=== PATIENT | female | born 1970 | race African-American/Black ===

== ENCOUNTER 2017-10-14 14:00 | Inpatient (IN) | payer OTHER ==
[2017-10-27 09:22] VITALS: BMI 40.2
[2017-10-28] MEDS ORDERED: ONDANSETRON 4 MG/2 ML VIAL IVPUSH PRN ×2 (11:55→15:43)
[2017-10-28] MEDS ORDERED: BUPIVACAINE HCL/PF 0.25% (2.5MG/ML) 10 ML VIAL ONE (11:57)
[2017-10-28] MEDS ORDERED: DEXAMETHASONE SOD PHOSPHATE/PF 10 MG/ML SDV ONE (11:57)
[2017-10-28] MEDS ORDERED: MIDAZOLAM HCL 2 MG/2 ML SINGLE DOSE VIAL ONE ×2 (11:58)
[2017-10-28] MEDS ORDERED: LACTATED RINGERS SOLUTION 1,000 ML IV SCH ×2 (12:00→15:45)
[2017-10-28] MEDS ORDERED: BUPIVACAINE HCL/PF 0.5% (5MG/ML) 10 ML VIAL ONE (13:10)
--- NOTE | 2017-10-28 13:31 | HP ---
History & Physical Update - History History: No Change - Physical Physical: No Change - Assessment Assessment: No Change - Plan Plan: No Change (Laparoscopic possible open vertical sleeve gastrectomy possible liver biopsy, EGD)
[2017-10-28] MEDS ORDERED: fentaNYL CITRATE 250 MCG/5 ML VIAL ONE (13:37)
[2017-10-28] MEDS ORDERED: ROCURONIUM BROMIDE 50 MG/5 ML VIAL ONE ×2 (13:37→14:59)
[2017-10-28] MEDS ORDERED: PROPOFOL 20 ML ONE (13:37)
[2017-10-28] MEDS ORDERED: LIDOCAINE HCL/PF 2% SDV 5ML VIAL ONE (13:39)
[2017-10-28] MEDS ORDERED: ceFAZolin SODIUM 1 GM VIAL ONE (13:56)
[2017-10-28] MEDS ORDERED: SODIUM CHLORIDE 0.9% P/F 10 ML VIAL IJ ONE (13:56)
[2017-10-28] MEDS ORDERED: ceFAZolin SODIUM 1 GM VIAL IVPB ONE (13:59)
[2017-10-28] MEDS ORDERED: DEXAMETHASONE SOD PHOSPHATE 4 MG/1 ML VIAL ONE (14:02)
[2017-10-28] MEDS ORDERED: NEOSTIGMINE METHYLSULFATE 0.5 MG/ML - 10 ML MDV ONE (15:10)
[2017-10-28] MEDS ORDERED: GLYCOPYRROLATE 0.2 MG/1 ML VIAL ONE ×2 (15:10→15:31)
[2017-10-28] MEDS ORDERED: BUPIVACAINE HCL/PF 0.5% (5MG/ML) 10 ML VIAL IJ ONE (15:13)
--- NOTE | 2017-10-28 15:24 | OP ---
Operative Note - Note: Operative Date: 10/28/17 Pre-Operative Diagnosis: Morbid obesity Operation: Laparoscopic vertical sleeve gastrectomy, wedge liver biopsy, EGD Post-Operative Diagnosis: Other (morbid obesity, hepatomegaly) Surgeon: Shaggy Sheridan Practice Business Asst: Fransico Garcia Anesthesia: General Specimens Removed: Greater curvature of stomach. Liver biopsy Estimated Blood Loss (mls): 30 Drains & Tubes with Location: 36 fr bougie Operative Report Dictated: Yes
[2017-10-28] MEDS: ONDANSETRON 4 MG/2 ML VIAL IVPUSH SCH ×3 (15:49→23:29)
[2017-10-28 16:32] LABS: HEMATOCRIT 42.5 % (32.4-45.2); HEMOGLOBIN 13.8 GM/dL (10.7-15.3); MCH 28.4 pg (25.7-33.7); MCHC 32.5 g/dl (32.0-36.0); MEAN CELL VOLUME 87.6 fl (80-96); MEAN PLT VOLUME 7.9 fl (7.5-11.1); PLATELET COUNT 281 K/MM3 (134-434); RBC 4.85 M/mm3 (3.60-5.2); RDW 13.3 % (11.6-15.6); WHITE BLOOD COUNT 17.7 K/mm3 (4.0-10.0)
[2017-10-28] MEDS ORDERED: ACETAMINOPHEN INJECTION 100 ML IVPB ONE (16:34)
[2017-10-28] MEDS: ACETAMINOPHEN 1000 MG/100 ML VIAL (NON FORMULARY) IVPB SCH ×2 (16:38→22:17)
[2017-10-28] MEDS: METOCLOPRAMIDE HCL INJECTION 10 MG/2 ML VIAL IVPUSH SCH ×2 (16:48→21:29)
[2017-10-28 17:03] LABS: ALBUMIN 3.4 g/dl (3.4-5.0); ALK PHOS 110 U/L (45-117); ANION GAP 10 (8-16); BILIRUBIN,TOTAL 0.7 mg/dL (0.2-1.0); BLOOD UREA NITROGEN 12 mg/dL (7-18); CALCIUM 8.4 mg/dL (8.5-10.1); CHLORIDE 104 mmol/L (98-107); CO2 23 mmol/L (21-32); CREATININE 0.9 mg/dL (0.55-1.02); POTASSIUM 4.5 mmol/L (3.5-5.1); SGOT/AST 220 U/L (15-37); SGPT/ALT 184 U/L (12-78); SODIUM 137 mmol/L (136-145); TOT PROT 6.5 g/dl (6.4-8.2)
[2017-10-28 17:14] LABS: GLUCOSE,RANDOM 312 mg/dL (74-106)
[2017-10-28] MEDS: SODIUM CHLORIDE 1,000 ML IV SCH (18:12)
[2017-10-28] MEDS: MORPHINE SULFATE 10 MG/1 ML *VIAL IVPUSH PRN ×2 (18:17→21:41)
[2017-10-28] MEDS ORDERED: METOPROLOL TARTRATE 5 MG/5 ML VIAL IVPUSH PRN (21:06)
[2017-10-28] MEDS: ENOXAPARIN NA (PORCINE) 40 MG/0.4 ML DISP.SYRIN SQ SCH (21:29)
[2017-10-28] MEDS: FAMOTIDINE 20 MG/50 ML IVPB 20 MG/50 ML MG IVPB SCH (21:34)
[2017-10-28] MEDS: INSULIN SLIDING SCALE (NOVOLOG) 1 VIAL SQ SCH (21:39)
[2017-10-29] MEDS: SODIUM CHLORIDE 1,000 ML IV SCH ×4 (02:25→16:42)
[2017-10-29] MEDS: MORPHINE SULFATE 10 MG/1 ML *VIAL IVPUSH PRN ×2 (02:34→16:42)
[2017-10-29] MEDS: ONDANSETRON 4 MG/2 ML VIAL IVPUSH SCH ×5 (02:37→20:51)
[2017-10-29] MEDS: METOCLOPRAMIDE HCL INJECTION 10 MG/2 ML VIAL IVPUSH SCH ×4 (03:17→20:51)
[2017-10-29] MEDS: ACETAMINOPHEN 1000 MG/100 ML VIAL (NON FORMULARY) IVPB SCH ×2 (04:20→09:41)
[2017-10-29] MEDS: PROMETHAZINE HCL 25 MG/1 ML VIAL IVPB PRN (05:52)
[2017-10-29] MEDS: INSULIN SLIDING SCALE (NOVOLOG) 1 VIAL SQ SCH ×3 (06:06→16:51)
[2017-10-29 06:56] LABS: HEMATOCRIT 39.7 % (32.4-45.2); HEMOGLOBIN 13.2 GM/dL (10.7-15.3); MCH 29.2 pg (25.7-33.7); MCHC 33.2 g/dl (32.0-36.0); MEAN CELL VOLUME 87.7 fl (80-96); MEAN PLT VOLUME 7.9 fl (7.5-11.1); PLATELET COUNT 278 K/MM3 (134-434); RBC 4.53 M/mm3 (3.60-5.2); RDW 13.2 % (11.6-15.6); WHITE BLOOD COUNT 11.9 K/mm3 (4.0-10.0)
[2017-10-29 07:04] LABS: ALBUMIN 3.2 g/dl (3.4-5.0); ANION GAP 12 (8-16); BLOOD UREA NITROGEN 11 mg/dL (7-18); CALCIUM 8.6 mg/dL (8.5-10.1); CHLORIDE 102 mmol/L (98-107); CO2 24 mmol/L (21-32); POTASSIUM 4.3 mmol/L (3.5-5.1); SODIUM 138 mmol/L (136-145)
[2017-10-29 07:10] LABS: ALK PHOS 107 U/L (45-117); BILIRUBIN,TOTAL 0.9 mg/dL (0.2-1.0); CREATININE 0.7 mg/dL (0.55-1.02); GLUCOSE,RANDOM 239 mg/dL (74-106); SGOT/AST 179 U/L (15-37); SGPT/ALT 200 U/L (12-78); TOT PROT 6.4 g/dl (6.4-8.2)
--- NOTE | 2017-10-29 08:58 | SPEC ---
DATE OF OPERATION: 10/28/2017 SURGEON: Shaggy Sheridan MD ASSOCIATE BROKER: Fransico Garcia MD PREOPERATIVE DIAGNOSES: 1. Morbid obesity. 2. Body mass index 40.3. 3. Hypertension. 4. Diabetes mellitus. 5. Hypercholesterolemia. POSTOPERATIVE DIAGNOSIS: 1. Morbid obesity. 2. Body mass index 40.3. 3. Hypertension. 4. Diabetes mellitus. 5. Hypercholesterolemia. 6. Hepatomegaly. PROCEDURES: 1. Laparoscopic vertical sleeve gastrectomy. 2. Laparoscopic wedge liver biopsy. 3. Esophagogastroduodenoscopy/upper endoscopy. SPECIMEN: 1. Greater curvature of stomach. 2. Liver biopsy. ESTIMATED BLOOD LOSS: 30 mL DRAINS: None. ANESTHESIA: GET. BOUGIE SIZE: 36-Yi. REASON FOR PROCEDURE: This is a 47-year-old female who presented to the office for weight loss options. After describing different options, she decided to proceed with a laparoscopic, possible open vertical sleeve gastrectomy, possible liver biopsy, and upper endoscopy. RISKS AND BENEFITS: After describing the different options for weight loss management, the patient decided to proceed with a laparoscopic, possible open vertical sleeve gastrectomy. The patient was seen by the respective subspecialties and cleared for surgery. The risks and benefits of the procedure were explained. These included bleeding, infection, hernia, MT, DVT, PE, injury to surrounding structures including the liver, colon, bowel, spleen, esophagus, vessel injury, nerve injury, weight regain, gastric leak, staple line leak, sleeve leak, obstruction, vitamin deficiency, hair loss and as some of the possible complications. The patient understood and signed informed consent. DESCRIPTION OF PROCEDURE: The patient was placed supine on the operating room table. The patient underwent general endotracheal intubation. A Dupree catheter was inserted. The arms were brought out at 90 degrees and secured. A footboard was placed and the legs were secured laterally with padding. The abdomen was prepped and draped in the usual sterile fashion. A timeout was performed. An incision was made in the left upper quadrant and a Veress needle inserted. Pneumoperitoneum was established. Subsequently, the Veress needle was removed and a 12-mm trocar was placed. The laparoscopic camera was then inserted and inspection of the abdominal cavity was performed. An incision was then made in the supraumbilical area and a 15-mm trocar was placed under direct visualization. A 5-mm trocar was then placed in the right upper quadrant and a 5-mm trocar was placed below the left subcostal margin. A stab wound was made in the subxiphoid area and a Barbara clamp inserted and removed to dilate the tract. A Brigitte liver retractor was inserted. The post was secured at the bedside by the nursing staff. The patient was placed in steep reverse Trendelenburg position and the Brigitte liver retractor was used to secure the liver towards the anterior abdominal wall. The pylorus was identified and 6 cm proximal to it, the lesser sac was entered using the LigaSure device. All lateral attachments to the greater curvature of the stomach, including the short gastric vessels, were ligated using the LigaSure device toward the gastrosplenic and gastrophrenic ligaments. Once this was done in its entirety, it was confirmed that all tubes within the nasal or oropharyngeal cavity, including a temperature probe, was removed by Anesthesia. The bougie was then inserted by Anesthesia. Transection of the stomach was then begun staying adjacent to the bougie but away from the angularis. Transection of the stomach was performed near the portion of the stomach where the lesser sac was entered. Two laparoscopic Endo-KAILEY black austyn were used at this location. Laparoscopic Endo KAILEY purple staple loads were then used for the remainder of the transection until the greater curvature of the stomach was fully transected. This was done staying close to the bougie. Care was taken to stay away from the angle of His cephalad. The staple line was then inspected. Hemostasis was identified. A leak test was then performed. It was clamped distally to the staple line. Irrigation solution was placed in the left upper quadrant and air was insufflated by Anesthesia into the sleeve. No leaks were identified. No obstruction was identified. This was done through the entirety of the staple line. At this point, the irrigation solution was suctioned and again, hemostasis was noted. A wedge liver biopsy was then performed. The left lobe of the liver was identified and a portion of the edge was grasped. Using electrocautery, a wedge of the liver was excised. This was removed and sent off the field as specimen. Hemostasis at the site of the wedge liver biopsy was attained using electrocautery. The 15-mm supraumbilical trocar was then removed and the greater curvature specimen removed from the site using a sponge stick mendoza. The specimen was inspected and a Veress needle inserted. The specimen insufflated adequately and no leak was identified. The staple line was noted to be intact. A Jace-Corbin device was then used to temporarily close the fascia with a 0 Vicryl suture at the site. The 15-mm trocar was then reinserted and the 12-mm trocar in the left upper quadrant was removed. The fascia at this site was then closed using the Jace-Corbin device with a 0 Vicryl suture. Again, hemostasis was noted. The Brigitte liver retractor was then removed under direct visualization. Pneumoperitoneum was desufflated and the fascial sutures were secured. Hemostasis was noted at all incision sites and Marcaine was injected at all incision sites. All incision sites were closed using 4-0 Biosyn. Sterile dressings were applied. The patient tolerated the procedure well and was transferred to the recovery room in stable condition with the Dupree catheter intact. The patient was transferred to telemetry for further monitoring. In addition, upper endoscopy was performed at the end to evaluate the staple line and to evaluate for leak and/or obstruction. The endoscope was inserted into the patient's mouth. The entirety of the esophagus, GE junction, gastric pouch, and staple line were inspected. Hemostasis was noted. No leak or obstruction was noted. The stomach was suctioned and the endoscope removed. Patient tolerated the procedure well, was transferred to recovery room in stable condition. Alie [id number]
[2017-10-29] MEDS: FAMOTIDINE 20 MG/50 ML IVPB 20 MG/50 ML MG IVPB SCH ×2 (09:35→21:00)
[2017-10-29] MEDS: ENOXAPARIN NA (PORCINE) 40 MG/0.4 ML DISP.SYRIN SQ SCH ×2 (09:42→21:00)
[2017-10-29] MEDS ORDERED: oxyCODONE HCL 5 MG TABLET PO PRN (15:29)
--- NOTE | 2017-10-29 17:53 | PN ---
Progress Note (short form) - Note Progress Note: POD 1 Pain controlled No nausea Vital Signs Period Temp Pulse Resp BP Sys/Smallwood Pulse Ox Last 24 Hr 98.0 F-98.9 F 93-104 18-22 120-169/68-101 95-98 Abd soft CBC, BMP 10/29/17 06:15 10/29/17 06:15 CT A/P: no leak/obstruction Clears Ambulate
--- NOTE | 2017-10-29 18:55 | PN ---
Progress Note (short form) - Note Progress Note: ANESTHESIOLOGY POST-OP CHECK 47F s/p Laparoscopic sleeve gastrectomy under general anesthesia, POD #1. No acute complaints. Denies pain. mild nausea, no vomiting. Ambulating, voiding. Vital Signs Temperature 98.5 F 10/29/17 14:47 Pulse Rate 98 H 10/29/17 14:47 Respiratory Rate 22 10/29/17 14:47 Blood Pressure 147/101 10/29/17 14:47 O2 Sat by Pulse Oximetry (%) 95 10/29/17 09:00 Active Medications Enoxaparin Sodium (Lovenox -) 40 mg SQ BID [facility] Last Admin: 10/29/17 09:42 Dose: 40 mg Fentanyl (Sublimaze Injection -) 50 mcg IVPUSH [id number] PRN PRN Reason: PAIN-PACU ORDER X 4 DOSES ONLY Last Admin: 10/28/17 16:25 Dose: 50 mcg Famotidine/Sodium Chloride (Pepcid 20 Mg Premixed Ivpb -) 20 mg in 50 mls @ 100 mls/hr IVPB BID [facility] Last Admin: 10/29/17 09:35 Dose: 100 mls/hr Sodium Chloride (Normal Saline -) 1,000 mls @ 75 mls/hr IV ASDIR [facility] Last Admin: 10/29/17 16:00 Dose: 75 mls/hr Insulin Aspart (Novolog Vial Sliding Scale -) 1 vial SQ TIDAC MICHAEL PRN Reason: Protocol Last Admin: 10/29/17 16:51 Dose: Not Given Metoclopramide HCl (Reglan Injection -) 10 mg IVPUSH Q6H [facility] Last Admin: 10/29/17 16:00 Dose: 10 mg Metoprolol Tartrate (Lopressor Injection -) 5 mg IVPUSH Q4H PRN PRN Reason: HYPERTENSION Last Admin: 10/28/17 22:25 Dose: 5 mg Morphine Sulfate (Morphine Injection -) 4 mg IVPUSH Q4H PRN PRN Reason: PAIN LEVEL 4 - 6 Last Admin: 10/29/17 16:42 Dose: 4 mg Ondansetron HCl (Zofran Injection) 4 mg IVPUSH Q4H [facility] Last Admin: 10/29/17 16:00 Dose: 4 mg Ondansetron HCl (Zofran Injection) 4 mg IVPUSH Q6H PRN PRN Reason: NAUSEA AND/OR VOMITING Oxycodone HCl (Roxicodone -) 5 mg PO Q4H PRN PRN Reason: PAIN LEVEL 1 - 3 Promethazine HCl (Phenergan Injection -) 12.5 mg IVPB Q6H PRN PRN Reason: NAUSEA-FOR RESCUE AFTER 15 MIN Last Admin: 10/29/17 05:52 Dose: 12.5 mg Gen: Awake, alert No apparent anesthesia complications. Pain well controlled. Continue management as per primary team,
[2017-10-30] MEDS: MORPHINE SULFATE 10 MG/1 ML *VIAL IVPUSH PRN ×5 (01:34→16:34)
[2017-10-30] MEDS: ONDANSETRON 4 MG/2 ML VIAL IVPUSH SCH ×7 (02:12→19:24)
[2017-10-30] MEDS: PROMETHAZINE HCL 25 MG/1 ML VIAL IVPB PRN (03:48)
[2017-10-30] MEDS: METOCLOPRAMIDE HCL INJECTION 10 MG/2 ML VIAL IVPUSH SCH ×4 (03:48→22:28)
[2017-10-30] MEDS: INSULIN SLIDING SCALE (NOVOLOG) 1 VIAL SQ SCH ×3 (06:56→16:41)
[2017-10-30] MEDS ORDERED: TRIMETHOBENZAMIDE HCL 200MG/2ML INJ IM PRN (08:02)
[2017-10-30] MEDS: ENOXAPARIN NA (PORCINE) 40 MG/0.4 ML DISP.SYRIN SQ SCH ×2 (09:31→22:22)
[2017-10-30] MEDS: FAMOTIDINE 20 MG/50 ML IVPB 20 MG/50 ML MG IVPB SCH (10:29)
[2017-10-30] MEDS: SODIUM CHLORIDE 1,000 ML IV SCH (15:39)
--- NOTE | 2017-10-30 19:40 | PN ---
Progress Note (short form) - Note Progress Note: Tolerating clears Still with pain Complaining of gas pain as well Increased PO percocet Added gas X Vital Signs Period Temp Pulse Resp BP Sys/Smallwood Pulse Ox Last 24 Hr 98.8 F-100.4 F 95-107 18-24 142-161/90-100 94-96 Abd soft CBC, BMP 10/29/17 06:15 10/29/17 06:15 Plan for discharge in am
[2017-10-30] MEDS: SIMETHICONE 80 MG TAB.CHEW (FP) PO PRN (20:00)
[2017-10-30] MEDS: MORPHINE SULFATE 10 MG/1 ML *VIAL IM PRN (20:46)
[2017-10-30] MEDS ORDERED: ATORVASTATIN CA 10 MG TABLET (FP) PO SCH (22:00)
[2017-10-30] MEDS ORDERED: PATIENT'S OWN MEDICATION (NON-FORMULARY) (Pravastatin Sodium 40 MG) PO SCH (22:00)
[2017-10-30] MEDS ORDERED: QUEtiapine FUMARATE 100 MG TABLET (FP) PO SCH (22:00)
[2017-10-30] MEDS: PANTOPRAZOLE 20 MG TABLET (FP) PO SCH (22:21)
[2017-10-31] MEDS: MORPHINE SULFATE 10 MG/1 ML *VIAL IM PRN (01:59)
[2017-10-31] MEDS: ONDANSETRON 4 MG/2 ML VIAL IVPUSH SCH ×3 (04:43→12:05)
[2017-10-31] MEDS: METOCLOPRAMIDE HCL INJECTION 10 MG/2 ML VIAL IVPUSH SCH ×2 (06:14→10:27)
[2017-10-31] MEDS: oxyCODONE HCL 5 MG TABLET PO PRN ×2 (06:47→10:33)
[2017-10-31] MEDS: SIMETHICONE 80 MG TAB.CHEW (FP) PO PRN ×2 (06:47→10:26)
[2017-10-31] MEDS: INSULIN SLIDING SCALE (NOVOLOG) 1 VIAL SQ SCH ×2 (06:50→12:05)
[2017-10-31 07:54] VITALS: BP 150/97; PULSE 100; TEMP 98.4
[2017-10-31] MEDS ORDERED: INSULIN DEGLUDEC U SQ SCH (10:00)
[2017-10-31] MEDS: PANTOPRAZOLE 20 MG TABLET (FP) PO SCH (10:24)
[2017-10-31] MEDS: ENOXAPARIN NA (PORCINE) 40 MG/0.4 ML DISP.SYRIN SQ SCH (10:26)
--- NOTE | 2017-11-02 09:39 | PATH ---
Surgical Pathology Report Patient Name: [facility]IEL S[facility]. Rec. #: [id number] /Age/Gender: 1970 (Age: 47) / F Account: [id number] Location: 4 W TELEMETRY U Taken: 10/28/2017 Received: 10/29/2017 Reported: 11/02/2017 Physicians: Shaggy Sheridan M.D. Specimen(s) Received A: GREATER CURVATURE STOMACH B: LIVER BIOPSY Clinical History Morbid obesity Final Diagnosis A. STOMACH, GREATER CURVATURE, SLEEVE GASTRECTOMY: PORTION OF UNREMARKABLE GASTRIC FUNDUS. IMMUNOSTAIN FOR H. PYLORI IS NEGATIVE. B. LIVER, WEDGE BIOPSY: MARKED MACROVESICULAR STEATOSIS WITH NO INFLAMMATORY INFILTRATES IDENTIFIED. IRON STAIN SHOWS MILD INCREASE IN IRON IN A KUPFFER CELL DISTRIBUTION. TRICHROME STAIN SHOWS AREAS OF PERIPORTAL AND PERICELLULAR FIBROSIS. Electronically Signed Thaddeus Fernandez M.D. Gross Description A. Received in formalin, labeled "greater curvature of the stomach," is a 139 gram, 19.0 x 3.8 x 3.2 cm. portion of stomach with a stapled margin of resection. The serosa is pinedo-cormier with minimal attached fat. The mucosa is pinedo-pink with normal folds. No mucosal masses are identified. Telehealth Coordinator sections are submitted in one cassette. B. Received in formalin labeled "liver biopsy," is a 5.3 x 2.4 x 1.6 cm portion of liver. Telehealth Coordinator sections are submitted in 2 cassettes. /10/29/2017 saudi10/29/2017
== END 2017-10-31 12:16 | disposition home or self-care (01) | DRG 403 ==
LOC: EDSTATUS 14:00 → JSAMEDAYSX 10-28 10:33 → J4W 10-28 17:45
PROVIDERS: ADMIT Surgery; ATTEND Surgery
PROC: 0DB64Z3 Excision of Stomach, Percutaneous Endoscopic Approach, Vertical (ICD-10-PCS; principal; 2017-10-28 13:00)
PROC: 0FB24ZX Excision of Left Lobe Liver, Percutaneous Endoscopic Approach, Diagnostic (ICD-10-PCS; 2017-10-28 13:00)
PROC: 0DJ08ZZ Inspection of Upper Intestinal Tract, Via Natural or Artificial Opening Endoscopic (ICD-10-PCS; 2017-10-28 13:00)
DX: E66.01 Morbid (severe) obesity due to excess calories (principal); Z68.41 Body mass index [BMI] 40.0-44.9, adult; I10 Essential (primary) hypertension; E11.9 Type 2 diabetes mellitus without complications; E78.00 Pure hypercholesterolemia, unspecified; R16.0 Hepatomegaly, not elsewhere classified
CPT/HCPCS: 36415; 74176-TC; 80053; 82962; 84703; 85027; 86850; 86900; 86901; 88305-TC; 88307-TC; 94010; 94760; J0131; J7030

== ENCOUNTER 2017-11-03 17:45 | Observation (INO) | payer OTHER ==
[2017-11-03] MEDS ORDERED: SODIUM CHLORIDE 1,000 ML IV STA ×2 (17:57→21:35)
[2017-11-03] MEDS ORDERED: ONDANSETRON 4 MG/2 ML VIAL IVPUSH ONE (17:57)
--- NOTE | 2017-11-03 18:00 | PDOC ---
History of Present Illness - General Stated Complaint: VOMITING Time Seen by Provider: 11/03/17 17:52 History Source: Patient - History of Present Illness Timing/Duration: reports: other (this am) Past History - Past Medical History Allergies/Adverse Reactions: Allergies Allergy/AdvReac Type Severity Reaction Status Date / Time No Known Allergies Allergy Verified 11/03/17 18:23 Home Medications: Ambulatory Orders Insulin Lispro [Humalog] 0 unit SQ TID 11/23/14 Quetiapine Fumarate [Seroquel -] 300 mg PO HS 11/23/14 Insulin Degludec [Tresiba Flextouch U-100] 120 unit SQ DAILY 10/27/17 Metoprolol Succinate [Toprol Xl] 100 mg PO DAILY 10/27/17 Pravastatin Sodium [Pravachol (Nf)] 40 mg PO HS 10/27/17 Famotidine [Pepcid] 20 mg PO BID #60 tablet 10/31/17 Oxycodone HCl/Acetaminophen [Percocet 10-325 mg Tablet] 1 each PO Q6H #20 tablet MDD 4 10/31/17 Pantoprazole Sodium [Protonix] 40 mg PO DAILY #60 tablet. 11/03/17 Anemia: No Asthma: No Cancer: No Cardiac Disorders: Yes (MT 2010) CVA: No COPD: No Dementia: No Diabetes: Yes (type 1) GI Disorders: No Disorders: No HTN: Yes Hypercholesterolemia: Yes Liver Disease: No Psychiatric Problems: Yes (BIPOLAR/MOOD DISORDER/ANX/DEP) Seizures: No Thyroid Disease: No - Immunization History Immunization Up to Date: Yes (FLU AND PNA ) - Suicide/Smoking/Psychosocial Hx Smoking History: Never smoked Have you smoked in the past 12 months: No Hx Alcohol Use: No Drug/Substance Use Hx: No Substance Use Type: None Hx Substance Use Treatment: No Review of Systems - Review of Systems Constitutional: No: Chills, Fever Respiratory: No: Shortness of Breath Cardiac (ROS): No: Chest Pain, Palpitations ABD/GI: Yes: Nausea, Vomiting. No: Constipated, Diarrhea, Rectal Bleeding, Abdominal cramping, Tarry Stools : No: Dysuria *Physical Exam - Physical Exam Comments: 11/03/17 18:11 Pt actively vomiting in restroom in ER General Appearance: Yes: Appropriately Dressed HEENT: positive: Normal Voice Respiratory/Chest: negative: Respiratory Distress Gastrointestinal/Abdominal: positive: Normal Bowel Sounds, Soft. negative: Tender, Distended, Guarding, Rebound Integumentary: positive: Dry, Warm Neurologic: positive: Fully Oriented, Alert, Normal Mood/Affect Medical Decision Making - Medical Decision Making 11/03/17 17:58 47-year-old female, morbidly obesity, HTN, HLD, IDDM (uses insulin pump), gastritis/GERD on protonix at home, s/p gastric sleeve 1 week ago at [facility] by Dr Sheridan, here w/ n/v that started this a.m. Pt states she's had numerous episodes of non-bloody, non-bilious vomitus. Denies abdominal pain. Having normal bowel movements at home now. No bright red blood per rectum or melena. States she has continued to eat a soft diet, as was instructed by her surgeon. States she has since called Dr. Sheridan who is aware that patient is in the ED See exam N/V today S/p gastric sleeve last week On soft diet No abd pain, BM changes, f/c Actively vomiting in ED, diaphoretic and tachycardic to 108 with benign abdomen -zofran -IVF -protonix (requested by pt as on meds at home for her GERD) -labs -abd xr r/o SBO though very low suspicion -?CT -reassess/po trial -discuss dispo w/ surgery 11/03/17 18:50 After multiple attempts by myself and ED nurse, unable to pace IV. No feasible veins w/ US. Patient now refusing further attempts in ED. States she is usually a difficult stick and declines further attempts at IV placement at this time. An EJ placement offered and also declined by pt. Requesting po meds at this time and currently sipping water in ED. Zofran and protonix given. Pending XR. Incoming team to re-evaluate and place IV for IVF and send labs if pt allows. Paged Dr Sheridan but no call back from as of yet 11/03/17 19:00 Signed out to MOE Keller at this time
[2017-11-03] MEDS ORDERED: PANTOPRAZOLE SODIUM 40 MG VIAL IVPUSH ONE ×2 (18:10→23:48)
[2017-11-03 18:23] VITALS: BP 152/98; PULSE 108; TEMP 98.4; BMI 33.3
[2017-11-03] MEDS ORDERED: PANTOPRAZOLE SODIUM 40 MG VIAL ONE ×2 (18:27→23:54)
[2017-11-03] MEDS ORDERED: ONDANSETRON 4 MG/2 ML VIAL ONE (18:27)
[2017-11-03] MEDS ORDERED: ONDANSETRON *ODT* 4 MG TABLET ONE ×2 (18:41→19:18)
--- NOTE | 2017-11-03 18:43 | PDOC ---
*Physical Exam - Vital Signs Last Vital Signs Temp Pulse Resp BP Pulse Ox 98.4 F 108 H 20 152/98 98 11/03/17 18:19 11/03/17 18:19 11/03/17 18:19 11/03/17 18:19 11/03/17 18:19 ED Treatment Course - LABORATORY CBC & Chemistry Diagram: 11/04/17 07:09 11/04/17 07:09 Medical Decision Making - Medical Decision Making 11/03/17 18:41 Ms Valdez is a 47 yo F who presents to the ER with nausea, vomiting H/o morbidly obesity, HTN, HLD, IDDM (uses insulin pump), gastritis/GERD on protonix at home, s/p gastric sleeve 1 week ago at [facility] No fevers or chills Pt seen by Midlevel Provider under my direct supervision Pt interviewed and examined All Ancillary studies pending To be followed up by overnight team I agree with plan as outlined by Midlevel Provider *DC/Admit/Observation/Transfer Diagnosis at time of Disposition: Nausea with vomiting, Status following surgery for weight loss - Referrals - Patient Instructions - Post Discharge Activity
[2017-11-03] MEDS ORDERED: ONDANSETRON 4 MG TABLET PO ONE ×2 (18:49→19:10)
[2017-11-03] MEDS ORDERED: PANTOPRAZOLE 40 MG TABLET (FP) PO ONE (18:49)
[2017-11-03] MEDS ORDERED: PANTOPRAZOLE 40 MG TABLET (FP) ONE (18:53)
--- NOTE | 2017-11-03 19:45 | PDOC ---
*Physical Exam - Vital Signs Last Vital Signs Temp Pulse Resp BP Pulse Ox 98.4 F 108 H 20 152/98 98 11/03/17 18:19 11/03/17 18:19 11/03/17 18:19 11/03/17 18:19 11/03/17 18:19 Heart Score/ECG Review - ECG Intrepretation Rhythm: Regular Rhythm Comment:: 11/03/17 21:45 sinus tachycardia ED Treatment Course - LABORATORY CBC & Chemistry Diagram: 11/04/17 00:13 11/04/17 00:13 - Medications Given in the ED: ED Medications Discontinued Medications Generic Name Dose Route Start Last Admin Trade Name Tlq PRN Reason Stop Dose Admin Sodium Chloride 1,000 mls @ 1,000 mls/hr 11/03/17 17:57 11/03/17 18:51 Normal Saline - IV 11/03/17 18:56 Not Given ASDIR STA Ondansetron HCl 4 mg 11/03/17 18:49 11/03/17 18:51 Zofran - PO 11/03/17 18:50 4 mg ONCE ONE Administration Pantoprazole Sodium 40 mg 11/03/17 18:49 11/03/17 18:56 Protonix - PO 11/03/17 18:50 40 mg ONCE ONE Administration Medical Decision Making - Medical Decision Making 11/03/17 19:52 IV x 2 attempted. unsuccessful. patient is requesting IM antiemetics. will give dose and reevaluate. 11/03/17 20:22 patient report nausea and urge to vomit. I spoke to Dr. Sheridan. reports that nausea and vomiting is typical postop. advised to control nausea with meds. if needs IV hydration patient to be admitted. 11/03/17 21:58 11/04/17 00:01 Patient continue to vomit. labs pending. will give IV protonix and ativan . 11/04/17 01:33 Patient reports slight imporvement in symptoms. unable to tolerate PO. will admit for IV hydration and management of nausea. patient signed out to HERMILO [email or web address]. *DC/Admit/Observation/Transfer Diagnosis at time of Disposition: Status following surgery for weight loss Nausea with vomiting Qualifiers: Vomiting type: unspecified Vomiting Intractability: intractable Qualified Code( s): R11.2 - Nausea with vomiting, unspecified - Discharge Dispostion Admit: Yes - Referrals Referrals: Thaddeus Saab [Primary Care Provider] - - Patient Instructions - Post Discharge Activity
[2017-11-03] MEDS ORDERED: MAG HYDROX/AL HYDROX/SIMETH 30 ML UNIT-DOSE CUP PO ONE (19:46)
[2017-11-03] MEDS ORDERED: PROCHLORPERAZINE INJECTION 10 MG/2 ML VIAL IM ONE (19:46)
[2017-11-03] MEDS ORDERED: ONDANSETRON *ODT* 4 MG TABLET SL ONE (19:48)
[2017-11-03] MEDS ORDERED: MAG HYDROX/AL HYDROX/SIMETH 30 ML UNIT-DOSE CUP ONE (19:49)
[2017-11-03] MEDS ORDERED: PROCHLORPERAZINE INJECTION 10 MG/2 ML VIAL ONE (19:49)
[2017-11-03] MEDS ORDERED: TRIMETHOBENZAMIDE HCL 200MG/2ML INJ IM ONE (20:24)
[2017-11-03] MEDS ORDERED: METOCLOPRAMIDE HCL INJECTION 10 MG/2 ML VIAL IVPB ONE (21:36)
[2017-11-03] MEDS ORDERED: METOCLOPRAMIDE HCL INJECTION 10 MG/2 ML VIAL ONE (21:42)
[2017-11-03] MEDS ORDERED: diazePAM CARPU-JECT 10 MG/2 ML DISP.SYRIN IVPUSH ONE (23:48)
[2017-11-03] MEDS ORDERED: LORazepam 2 MG/ML SDV VIAL ONE (23:57)
[2017-11-04] MEDS ORDERED: SODIUM CHLORIDE 0.9% 500 ML INFUS.BAG IV ONE (00:01)
[2017-11-04 00:21] LABS: EOS % 0.1 % (0-4.5); HEMATOCRIT 46.8 % (32.4-45.2); HEMOGLOBIN 15.3 GM/dL (10.7-15.3); MCH 28.8 pg (25.7-33.7); MCHC 32.7 g/dl (32.0-36.0); MEAN CELL VOLUME 87.9 fl (80-96); MEAN PLT VOLUME 7.6 fl (7.5-11.1); MONO % 6.7 % (3.8-10.2); NEUT % 78.2 % (42.8-82.8); PLATELET COUNT 275 K/MM3 (134-434); RBC 5.32 M/mm3 (3.60-5.2); RDW 13.9 % (11.6-15.6); WHITE BLOOD COUNT 13.2 K/mm3 (4.0-10.0)
[2017-11-04] MEDS ORDERED: SODIUM CHLORIDE 1,000 ML IV STA (00:41)
[2017-11-04 00:53] LABS: CHLORIDE 108 mmol/L (98-107); POTASSIUM 4.3 mmol/L (3.5-5.1); SODIUM 141 mmol/L (136-145)
[2017-11-04 01:23] LABS: ALBUMIN 3.7 g/dl (3.4-5.0); ALK PHOS 131 U/L (45-117); BILIRUBIN,TOTAL 1.2 mg/dL (0.2-1.0); BLOOD UREA NITROGEN 7 mg/dL (7-18); CALCIUM 8.2 mg/dL (8.5-10.1); CO2 19 mmol/L (21-32); CREATININE 0.7 mg/dL (0.55-1.02); GLUCOSE,RANDOM 185 mg/dL (74-106); SGOT/AST 56 U/L (15-37); SGPT/ALT 90 U/L (12-78); TOT PROT 7.4 g/dl (6.4-8.2)
[2017-11-04 01:54] LABS: ANION GAP 14 (8-16)
[2017-11-04] MEDS ORDERED: ONDANSETRON 4 MG/2 ML VIAL IVPUSH PRN (01:54)
[2017-11-04] MEDS ORDERED: SODIUM CHLORIDE 1,000 ML IV SCH (02:00)
--- NOTE | 2017-11-04 02:55 | HP ---
CHIEF COMPLAINT: nausea, vomiting PCP: Katiana, Surgery: Arvin HISTORY OF PRESENT ILLNESS: This is a 47 year old female with a past medical history significant for morbid obseity, DM, HTN who is s/p sleeve gastrectomy on 10/28/17 who presented to the ED with N/V since 10am on 11/03. Pt reports the nausea is persisting despite multiple medications. ER course was notable for: (1) given tigan, reglan, zofran and compazine for nausea (2) WBC 13.2 Recent Travel: pt denies PAST MEDICAL HISTORY: HTN, HLD, NM, DM, Bipolar, anxiety, depression PAST SURGICAL HISTORY: Sleeve gastrectomy 10/28/17 x 2 fibroidectomy Social History: Smoking: pt denies Alcohol: pt denies Drugs: pt denies Family History: mother alive with DM, HTN, HLD father , unk 3 sisters with no medical problems 2 children alive and well Allergies No Known Allergies Allergy (Verified 11/03/17 18:23) HOME MEDICATIONS: 3 Medication Instructions Recorded Insulin Lispro [Humalog] 0 unit SQ TID 11/23/14 Quetiapine Fumarate [Seroquel -] 300 mg PO HS 11/23/14 Insulin Degludec [Tresiba 120 unit SQ DAILY 10/27/17 Flextouch U-100] Metoprolol Succinate [Toprol Xl] 100 mg PO DAILY 10/27/17 Pravastatin Sodium [Pravachol (Nf)] 40 mg PO HS 10/27/17 Famotidine [Pepcid] 20 mg PO BID #60 tablet 10/31/17 Oxycodone HCl/Acetaminophen 1 each PO Q6H #20 tablet MDD 4 10/31/17 [Percocet 10-325 mg Tablet] Pantoprazole Sodium [Protonix] 40 mg PO DAILY #60 tablet. 11/03/17 REVIEW OF SYSTEMS CONSTITUTIONAL: Absent: fever, chills, diaphoresis, generalized weakness, malaise, loss of appetite, weight change HEENT: Absent: rhinorrhea, nasal congestion, throat pain, throat swelling, difficulty swallowing, mouth swelling, ear pain, eye pain, visual changes CARDIOVASCULAR: Absent: chest pain, syncope, palpitations, irregular heart rate, lightheadedness , peripheral edema RESPIRATORY: Absent: cough, shortness of breath, dyspnea with exertion, orthopnea, wheezing, stridor, hemoptysis GASTROINTESTINAL: Present: nausea, vomiting Absent: abdominal pain, abdominal distension, diarrhea, constipation, melena, hematochezia GENITOURINARY: Absent: dysuria, frequency, urgency, hesitancy, hematuria, flank pain, genital pain MUSCULOSKELETAL: Absent: myalgia, arthralgia, joint swelling, back pain, neck pain SKIN: Absent: rash, itching, pallor HEMATOLOGIC/IMMUNOLOGIC: Absent: easy bleeding, easy bruising, lymphadenopathy, frequent infections ENDOCRINE: Absent: unexplained weight gain, unexplained weight loss, heat intolerance, cold intolerance NEUROLOGIC: Absent: headache, focal weakness or paresthesias, dizziness, unsteady gait, seizure, mental status changes, bladder or bowel incontinence PSYCHIATRIC: Absent: anxiety, depression, suicidal or homicidal ideation, hallucinations. PHYSICAL EXAMINATION Vital Signs - 24 hr 3 11/03/17 18:19 Temperature 98.4 F Pulse Rate 108 H Respiratory 20 Rate Blood Pressure 152/98 O2 Sat by Pulse 98 Oximetry (%) GENERAL: Awake, alert, and fully oriented, in no acute distress. HEAD: Normal with no signs of trauma. EYES: Pupils equal, round and reactive to light, extraocular movements intact, sclera anicteric, conjunctiva clear. No lid lag. EARS, NOSE, THROAT: Ears normal, nares patent, oropharynx clear without exudates. Moist mucous membranes. NECK: Normal range of motion, supple without lymphadenopathy, JVD, or masses. LUNGS: Breath sounds equal, clear to auscultation bilaterally. No wheezes, and no crackles. No accessory muscle use. HEART: Regular rate and rhythm, normal S1 and S2 without murmur, rub or gallop. ABDOMEN: Soft, tender LUQ, not distended, normoactive bowel sounds, no guarding , no rebound, no masses. No hepatomegaly or splenomegaly. MUSCULOSKELETAL: Normal range of motion at all joints. No bony deformities or tenderness. No CVA tenderness. UPPER EXTREMITIES: 2+ pulses, warm, well-perfused. No cyanosis. No clubbing. No peripheral edema. LOWER EXTREMITIES: 2+ pulses, warm, well-perfused. No calf tenderness. No peripheral edema. NEUROLOGICAL: Cranial nerves II-XII intact. Normal speech. Normal gait. PSYCHIATRIC: Cooperative. Good eye contact. Appropriate mood and affect. SKIN: Warm, dry, normal turgor, no rashes or lesions noted, normal capillary refill. Laboratory Results - last 24 hr 3 11/03/17 11/04/17 11/04/17 20:43 00:13 00:13 WBC 13.2 H RBC 5.32 H Hgb 15.3 D Hct 46.8 H D MCV 87.9 MCH 28.8 MCHC 32.7 RDW 13.9 Plt Count 275 MPV 7.6 Neutrophils % 78.2 D Lymphocytes % 14.0 D Monocytes % 6.7 Eosinophils % 0.1 D Basophils % 1.0 Sodium 141 Potassium 4.3 Chloride 108 H Carbon Dioxide 19 L Anion Gap 14 BUN 7 Creatinine 0.7 Creat Clearance w eGFR > 60 POC Glucometer [phone] Random Glucose 185 H Calcium 8.2 L Total Bilirubin 1.2 H D AST 56 H ALT 90 H Alkaline Phosphatase 131 H Total Protein 7.4 Albumin 3.7 Beta HCG, Quant < 1.0 ECG sinus tachycardia Vent rate 103, QTC [address]/t wave changes Radiology Reports FUA-official read pending, no dilated loops, stool noted throughout colon ASSESSMENT/PLAN: 47yF with PMH HTN, HLD, NM, DM, anxiety/bipolar presented to the ED day 7 postop sleeve gastrectomy with vomiting. N/V s/p sleeve gastrectomy - unable to be controlled in ED - zofran q6h iv - tigan q8h im - NS @ 100cc/hr - consider laxative pending final read on xray HTN/HLD - cont home meds: metoprolol, lipitor bipolar/anxiety - cont home seroquel DVT PPX - deferred, anticipated LOS <48h FEN - NS @ 100cc/hr - BMP in am - clear liquid diet. Dispo: pt currently requires further observation for management of her emergent condition. Hospitalist Screening - Colonoscopy Questionnaire Colonoscopy Questionnaire: Colonoscopy Questionnaire - Patient: 50 - 75 years old and never had a screening colonoscopy: No History of colon or rectal polyps, or CA: No History of IBD, Crohn's disease or UC: No History of abdominal radiation therapy as a child: No - Relative: 1 with colon or rectal CA, or polyps at age 60 or younger: No Colon or rectal CA diagnosed at age 45 or younger: No Multiple relatives with colon or rectal CA: No - Outcome: Screening Result: Negative Screen
[2017-11-04] MEDS ORDERED: oxyCODONE HCL 5 MG TABLET PO PRN (03:05)
[2017-11-04] MEDS ORDERED: ACETAMINOPHEN 325 MG TABLET (FP) PO PRN (03:05)
[2017-11-04] MEDS ORDERED: TRIMETHOBENZAMIDE HCL 200MG/2ML INJ IM PRN (05:20)
[2017-11-04 06:18] LABS: PLATELET ESTIMATE ADEQUATE
[2017-11-04 07:23] LABS: BASO % 0.8 % (0-2.0); EOS % 0.4 % (0-4.5); HEMATOCRIT 41.5 % (32.4-45.2); HEMOGLOBIN 13.4 GM/dL (10.7-15.3); LYMPH % 19.3 % (8-40); MCH 28.5 pg (25.7-33.7); MCHC 32.2 g/dl (32.0-36.0); MEAN CELL VOLUME 88.5 fl (80-96); MEAN PLT VOLUME 7.2 fl (7.5-11.1); MONO % 8.4 % (3.8-10.2); NEUT % 71.1 % (42.8-82.8); PLATELET COUNT 295 K/MM3 (134-434); RDW 13.9 % (11.6-15.6)
[2017-11-04 07:50] LABS: ANION GAP 14 (8-16); BLOOD UREA NITROGEN 6 mg/dL (7-18); CALCIUM 8.6 mg/dL (8.5-10.1); CHLORIDE 106 mmol/L (98-107); CO2 22 mmol/L (21-32); GLUCOSE,RANDOM 177 mg/dL (74-106); MAGNESIUM 2.4 mg/dL (1.8-2.4); POTASSIUM 4.1 mmol/L (3.5-5.1); SODIUM 142 mmol/L (136-145)
[2017-11-04 07:52] LABS: CREATININE 0.7 mg/dL (0.55-1.02); PHOSPHOROUS 2.9 mg/dL (2.5-4.9)
[2017-11-04] MEDS: INSULIN DETEMIR 100 UNITS/ML MDV SQ SCH ×2 (08:33→08:43)
[2017-11-04] MEDS: INSULIN SLIDING SCALE (NOVOLOG) 1 VIAL SQ SCH ×2 (08:34→08:42)
[2017-11-04] MEDS ORDERED: PANTOPRAZOLE 40 MG TABLET (FP) PO SCH (10:00)
[2017-11-04] MEDS ORDERED: PANTOPRAZOLE SODIUM 40 MG VIAL IVPUSH SCH (10:00)
--- NOTE | 2017-11-04 10:35 | CONSULT ---
Consult Consult Specialty:: Bariatric Surgery Reason for Consultation:: Nausea/vomiting - History of Present Illness History of Present Illness: 47 female s/p recent vertical sleeve gastrectomy Presented to the ER with nausea/vomiting Stated that Protonix had helped her in the past Given protonix and compazine and improved now no more nausea/vomiting and tolerating clears - History Source History Provided By: Patient Limitations to Obtaining History: No Limitations - Past Medical History Gastrointestinal: Yes: Other (Morbid obesity) ...LMP: 10/09/17 - Alcohol/Substance Use Hx Alcohol Use: No - Smoking History Smoking history: Never smoked Have you smoked in the past 12 months: No Home Medications - Allergies Allergies/Adverse Reactions: Allergies Allergy/AdvReac Type Severity Reaction Status Date / Time No Known Allergies Allergy Verified 11/03/17 18:23 - Home Medications Home Medications: Ambulatory Orders Insulin Lispro [Humalog] 0 unit SQ TID 11/23/14 Quetiapine Fumarate [Seroquel -] 300 mg PO HS 11/23/14 Insulin Degludec [Tresiba Flextouch U-100] 120 unit SQ DAILY 10/27/17 Metoprolol Succinate [Toprol Xl] 100 mg PO DAILY 10/27/17 Pravastatin Sodium [Pravachol (Nf)] 40 mg PO HS 10/27/17 Famotidine [Pepcid] 20 mg PO BID #60 tablet 10/31/17 Oxycodone HCl/Acetaminophen [Percocet 10-325 mg Tablet] 1 each PO Q6H #20 tablet MDD 4 10/31/17 Pantoprazole Sodium [Protonix] 40 mg PO DAILY #60 tablet. 11/03/17 Family Disease History - Family Disease History Family History: Unremarkable Review of Systems - Review of Systems Constitutional: denies: Chills, Fever HENT: reports: No Symptoms Neck: reports: No Symptoms Cardiovascular: denies: Chest Pain Respiratory: denies: Cough Gastrointestinal: reports: Nausea, Vomiting Neurological: denies: Change in LOC Pain Intensity: 2 Physical Exam Vital Signs: Vital Signs Temperature 98.4 F 11/03/17 18:19 Pulse Rate 108 H 11/03/17 18:19 Respiratory Rate 20 11/03/17 18:19 Blood Pressure 152/98 11/03/17 18:19 O2 Sat by Pulse Oximetry (%) 98 03/14/18 18:19 Constitutional: Yes: Calm HENT: Yes: WNL Neck: Yes: WNL Cardiovascular: Yes: Regular Rate and Rhythm Respiratory: Yes: Regular Gastrointestinal: Yes: Soft, Abdomen, Obese. No: Tenderness, Rebound Neurological: Yes: Alert, Oriented Labs: CBC, BMP 11/04/17 07:09 11/04/17 07:09 Problem List - Problems (1) Nausea with vomiting Code(s): R11.2 - NAUSEA WITH VOMITING, UNSPECIFIED Qualifiers: Vomiting type: unspecified Vomiting Intractability: intractable Qualified Code(s): R11.2 - Nausea with vomiting, unspecified (2) Status following surgery for weight loss Code(s): Z98.84 - BARIATRIC SURGERY STATUS Assessment/Plan Improved with protonix/compazine Tolerating clears Likely edema s/p sleeve gastrectomy wants to go home Told to continue clears
--- NOTE | 2017-11-04 10:47 | PN ---
Progress Note (short form) - Note Progress Note: went to see patient in ER was informed that the patient left the ER she was seen by surgery then she left the ER without signing any discharge paper work i was not able to see the patient
--- NOTE | 2017-11-04 10:51 | DS ---
Physical Examination Vital Signs: Vital Signs Temperature 98.4 F 11/03/17 18:19 Pulse Rate 108 H 11/03/17 18:19 Respiratory Rate 20 11/03/17 18:19 Blood Pressure 152/98 11/03/17 18:19 O2 Sat by Pulse Oximetry (%) 98 11/03/17 18:19 not able to examine patient as she already left the ER Labs: CBC, BMP 11/04/17 07:09 11/04/17 07:09 Discharge Summary Reason For Visit: NAUSEA/VOMITING S/P BARIATRIC SURGERY Current Active Problems Nausea with vomiting (Acute) Status following surgery for weight loss (Acute) Hospital Course: CHIEF COMPLAINT: nausea, vomiting PCP: Katiana, Surgery: Arvin HISTORY OF PRESENT ILLNESS: This is a 47 year old female with a past medical history significant for morbid obseity, DM, HTN who is s/p sleeve gastrectomy on 10/28/17 who presented to the ED with N/V since 10am on 11/03. Pt reports the nausea is persisting despite multiple medications. ER course was notable for: (1) given tigan, reglan, zofran and compazine for nausea (2) WBC 13.2 Recent Travel: pt denies PAST MEDICAL HISTORY: HTN, HLD, [place], DM, Bipolar, anxiety, depression PAST SURGICAL HISTORY: Sleeve gastrectomy 10/28/17 x 2 fibroidectomy patient seen by surgery got protonix and compazine and wanted to go home before i could see her she already left the ER without signing any discharge papers, she only signed the observation papers - Instructions Referrals: Thaddeus Saab [Primary Care Provider] - Disposition: ELOPED - Home Medications Comprehensive Discharge Medication List: Ambulatory Orders Insulin Lispro [Humalog] 0 unit SQ TID 11/23/14 Quetiapine Fumarate [Seroquel -] 300 mg PO HS 11/23/14 Insulin Degludec [Tresiba Flextouch U-100] 120 unit SQ DAILY 10/27/17 Metoprolol Succinate [Toprol Xl] 100 mg PO DAILY 10/27/17 Pravastatin Sodium [Pravachol (Nf)] 40 mg PO HS 10/27/17 Famotidine [Pepcid] 20 mg PO BID #60 tablet 10/31/17 Oxycodone HCl/Acetaminophen [Percocet 10-325 mg Tablet] 1 each PO Q6H #20 tablet MDD 4 10/31/17 Pantoprazole Sodium [Protonix] 40 mg PO DAILY #60 tablet. 11/03/17
--- NOTE | 2017-11-04 16:40 | EKG ---
Test Reason : Blood Pressure : / mmHG Vent. Rate : 103 BPM Atrial Rate : 103 BPM P-R Int : 188 ms QRS Dur : 082 ms QT Int : 380 ms P-R-T Axes : 038 -18 021 degrees QTc Int : 497 ms SINUS TACHYCARDIA OTHERWISE NORMAL ECG WHEN COMPARED WITH ECG OF 03-AUG-2017 11:31, NO SIGNIFICANT CHANGE WAS FOUND Confirmed by YUE CASTRO MD ([id number]) on 11/04/2017 4:40:20 PM Referred By: Confirmed By:YUE CASTRO MD
[2017-11-04] MEDS ORDERED: QUEtiapine FUMARATE 100 MG TABLET (FP) PO SCH (22:00)
[2017-11-04] MEDS ORDERED: INSULIN SLIDING SCALE (NOVOLOG) 1 VIAL SQ SCH (22:00)
[2017-11-04] MEDS ORDERED: ATORVASTATIN CA 10 MG TABLET (FP) PO SCH (22:00)
== END 2017-11-04 08:30 | disposition left against medical advice (07) ==
LOC: JER 17:45 → JERBED 23:57 → UNDOADMOB 11-04 02:14
PROVIDERS: ADMIT Internal Medicine; ATTEND Family Medicine
PROC: 3E013GC Introduction of Other Therapeutic Substance into Subcutaneous Tissue, Percutaneous Approach (ICD-10-PCS; principal; 2017-11-03)
DX: R11.2 Nausea with vomiting, unspecified (principal); Z98.84 Bariatric surgery status; I25.2 Old myocardial infarction; I10 Essential (primary) hypertension; E10.9 Type 1 diabetes mellitus without complications; E78.5 Hyperlipidemia, unspecified; E66.01 Morbid (severe) obesity due to excess calories; F31.9 Bipolar disorder, unspecified; F39 Unspecified mood [affective] disorder; F41.9 Anxiety disorder, unspecified; F32.9 Major depressive disorder, single episode, unspecified; K21.9 Gastro-esophageal reflux disease without esophagitis; Z96.41 Presence of insulin pump (external) (internal); Z68.33 Body mass index [BMI] 33.0-33.9, adult
CPT/HCPCS: 36415; 74019-TC-FY; 80048; 80053; 82962; 83735; 84100; 84702; 85025; 93005; 93010; 96372; 99283-25; G0378; J7030; Q0162